=== PATIENT | male | born 1945 | race Caucasian/White ===

== ENCOUNTER 2018-12-18 07:51 | Observation (INO) ==
--- NOTE | 2018-12-18 09:04 | Diag Imaging Result Doc PS360 ---
CT HEAD W/O CONTRAST - 12/18/2018 INDICATION: syncope COMPARISON: 07/30/2018, 06/20/2017 FINDINGS: There is moderate diffuse cerebral atrophy. There is significant ventriculomegaly. There is overall stable periventricular white matter hypodensity suggesting chronic microvascular disease. This also might represent edema from normal pressure hydrocephalus. The skull is intact. The sinuses are clear. IMPRESSION: Cerebral atrophy with chronic microvascular disease. Normal pressure hydrocephalus can also have the same appearance. This exam was performed using automated exposure control, adjustment of mA or kV according to patient size, and/or use of iterative reconstruction technique Electronically signed by Fred Mancuso 12/18/2018 9:01 AM
[2018-12-18 10:03] LABS: AGAP 11; ALB/GLOB RATIO 0.8; ALBUMIN 3.3 g/dL (3.5-5.0); ALKALINE PHOSPHATASE 85 U/L (32-122); BUN 13 mg/dL (8-22); CALCIUM 8.5 mg/dL (8.8-10.2); CHLORIDE 100 mmol/L (98-107); CK PROFILE 34 U/L (24-204); COSMO 268; CREATININE 0.6 mg/dL (0.7-1.2); ESTIMATED GFR > 60; GLUCOSE 85 mg/dL (70-104); GOT 13 U/L (10-34); GPT 8 U/L (10-44); POTASSIUM 4.1 mmol/L (3.5-5.1); SODIUM 134 mmol/L (136-145); TCO2 23 mmol/L (25-35); TOTAL PROTEIN 7.5 g/dL (6.3-8.3)
[2018-12-18 10:19] LABS: HEMATOCRIT 25.6 % (42.0-52.0); HEMOGLOBIN 8.2 g/dL (14.0-18.0); IMM GRAN# 0.04 X1000 (0.0-0.04); LYMPH# 0.24 X1000 (1.2-3.4); LYMPH% 11.8 % (20.5-51.1); MCV 112.3 FL (81-99); MONO# 0.59 X1000 (0.11-0.59); MONO% 28.9 % (1.7-9.3); MPV 10.1 FL (7.4-10.4); NEUT# 1.17 X1000 (1.4-6.5); NEUT% 57.3 % (42.2-75.2); PLT 110 X1000 (130-400); RBC 2.28 XMIL (4.7-6.1); RDW 15.9 % (11.5-14.5); WBC 2.04 X1000 (4.8-10.8)
[2018-12-18] MEDS ORDERED: LASIX IV ONE (13:13)
[2018-12-18] MEDS ORDERED: LOPRESSOR IV ONE (13:13)
--- NOTE | 2018-12-18 14:19 | PROVIDER DOCUMENTATION ---
This chart was entered by Jihan Geiger Scribe, acting as scribe for Ryley Saavedra DO. HPI-Syncope/Dizziness - General Chief Complaint: Syncope Stated Complaint: syncope Time Seen by Provider: 12/18/18 10:20 Source: patient Allergies/Adverse Reactions: Patient Allergies Allergy/AdvReac Type Severity Reaction Status Date / Time No Known Allergies Allergy Verified 07/30/18 10:07 Home Medications: Home Medication List Medication Instructions Recorded Confirmed Last Taken Type Omeprazole [Prilosec] 40 mg PO DAILY 07/30/18 12/18/18 07/29/18 History 40 MG Megestrol Acetate 40 mg PO DAILY 12/18/18 12/18/18 Unknown History - History of Present Illness-Syncope/Dizzy Nature of Presenting Problem: Patient is a 73 year old male who presents to the ED via EMS after having 4 syncopal episodes this morning. Reports one syncopal episodes lasted 5 minutes. History of esophageal cancer that is being treated by Dr. Villar. Denies chest pain and shortness of breath. Prior Episodes: reports: multiple episodes today (4) Onset/Duration: reports: this morning Timing: reports: intermittent Symptoms prior to episode: reports: none Context: reports: lost consciousness Loss of Consciousness: prolonged (minutes) (5) Location of injury. (If syncope resulted in an injury.): reports: none Current Symptoms: reports: none/feels normal Recently Seen Here or By Another Healthcare Provider: No Review of Systems - Adult - REVIEW OF SYSTEMS - ADULT Constitutional: reports: no symptoms reported. denies: chills, fever, fatique Eyes: reports: no symptoms reported Ears, Nose, Mouth & Throat: reports: no symptoms reported Cardiovascular: reports: no symptoms reported. denies: chest pain, heart murmur, palpitations Respiratory: reports: no symptoms reported. denies: cough, shortness of breath, wheezing Gastrointestinal: reports: no symptoms reported Genitourinary: reports: no symptoms reported Musculoskeletal: reports: no symptoms reported Integumentary: reports: no symptoms reported Neurological: reports: see HPI, syncope. denies: dizziness/vertigo, headache/migraines, numbness, seizure Psychiatric: reports: no symptoms reported Endocrine: reports: no symptoms reported Hematologic/Lymphatic: reports: no symptoms reported Allergic/Immunologic: reports: no symptoms reported All Other Systems: Reviewed and Negative Past History - Adult - PAST MEDICAL HISTORY-ADULT Review of Records: reports: Nursing Assessment Review, Medications Reviewed, Social history reviewed & non-contributory. Major Childhood Illnesses: reports: denies history Cardiovascular: reports: denies history Respiratory: reports: denies history Gastrointestinal: reports: cancer (esophgeal) Obstetrical/Gynecological: reports: denies history Genitourinary: reports: denies history Musculoskeletal: reports: denies history Neurological: reports: denies history Psychiatric: reports: denies history Endocrine/Immune: reports: denies history Other Conditions: reports: other cancer (esophageal cancer) - PRIOR SURGERIES/PROCEDURES Surgical/Procedure History: reports: hernia repair, other (cancer removal) - PRIOR HOSPITALIZATIONS Prior Hospitalizations: reports: for other non-related - IMMUNIZATION STATUS Childhood Immunizations: See Nurse Assessment Flu Vaccine: See Nurse Assessment - FAMILY HISTORY Family History: reviewed, not pertinent - SOCIAL HISTORY Smoking: cigarettes, chew, less than 1 pack/day Provider spent 3-5 mins advising pt. on dangers of tobacco.: Discussed manners to quit use, and f/u contacts for add'l counseling. Substance Use: denies Living Situation: family Physical Exam-General - PHYSICAL EXAM-ADULT Initial Vital Signs Reviewed: Yes - CONSTITUTIONAL General Appearance: alert, no apparent distress, cachetic. negative: lethargic, slow to respond - EYES Eyes: other (pupils are 2 mm and equal. lateral nystagmus). negative: scleral icterus, sunken eyes - HEAD, EARS, NOSE, MOUTH & THROAT HENMT: other (dry mucous membranes. edentulous). negative: moist mucous membranes, angioedema, hearing deficit - NECK Neck: other (degenerative changes.). negative: carotid bruit, limited range of motion - RESPIRATORY Respiratory: chest non-tender, crackles (bilateral bases), wheezing (bilateral bases. inspiratory wheeze present to anterior chest.). negative: respiratory distress - CARDIOVASCULAR Cardiovascular: no edema, no JVD, systolic murmur (1/6 murmur present at right 2nd intercostal space and apex.), PMI displaced laterally. negative: tachycardia - GASTROINTESTINAL (ABDOMEN) Abdominal Exam: normal bowel sounds, non tender, soft, abdominal bruit. negative: guarding, hernia - MUSCULOSKELETAL Extremity: normal range of motion, non-tender, other (degenerative changes to bilateral lower extremity joints.). negative: deformity, erythema - SKIN Integumentary: normal turgor, warm/dry, ecchymosis (scattered ecchymosis to upper and lower extremities.). negative: cyanosis, jaundice - NEUROLOGIC Neurologic: grossly normal, other (skate boarder 2-12 intact.). negative: aphasia, facial droop - PSYCHIATRIC Psych/Mental Status: normal mood/affect, other (oriented to person and place.). negative: anxious Progress - PLAN OF CARE/RESULTS Progress/Plan/Lab Results: Vital Signs - 8 hr 12/18/18 08:04 12/18/18 10:38 12/18/18 10:40 Temperature 97.9 F Pulse Rate 63 117 H 120 H Respiratory Rate 16 28 H 28 H Blood Pressure 128/72 O2 Sat by Pulse Oximetry 94 L 98 96 12/18/18 10:44 12/18/18 10:50 12/18/18 11:00 Temperature Pulse Rate 100 H 115 H 112 H Respiratory Rate 37 H 27 H 27 H Blood Pressure 109/68 O2 Sat by Pulse Oximetry 98 91 L 97 12/18/18 11:01 12/18/18 12:00 12/18/18 12:01 Temperature Pulse Rate 113 H 111 H 113 H Respiratory Rate 28 H 27 H 27 H Blood Pressure 111/74 113/75 O2 Sat by Pulse Oximetry 97 97 96 12/18/18 13:01 12/18/18 13:36 12/18/18 13:39 Temperature Pulse Rate 116 H 114 H 114 H Respiratory Rate 27 H 26 H 26 H Blood Pressure 108/74 105/73 98/70 O2 Sat by Pulse Oximetry 97 95 96 12/18/18 13:41 12/18/18 13:43 12/18/18 13:45 Temperature Pulse Rate 114 H 117 H 108 H Respiratory Rate 26 H 26 H 28 H Blood Pressure 111/66 103/68 102/67 O2 Sat by Pulse Oximetry 95 96 95 12/18/18 13:46 12/18/18 13:47 12/18/18 13:50 Temperature Pulse Rate 100 H 98 H 103 H Respiratory Rate 25 H 27 H 28 H Blood Pressure 107/69 112/64 O2 Sat by Pulse Oximetry 96 96 96 Laboratory Results - last 24 hr 12/18/18 12/18/18 12/18/18 09:34 09:34 09:34 WBC 2.04 L RBC 2.28 L Hgb 8.2 L Hct 25.6 L MCV 112.3 H MCH 36.0 H MCHC 32.0 L RDW Std Deviation 15.9 H Plt Count 110 L MPV 10.1 Immature Gran % (Auto) 2.0 H Neut % (Auto) 57.3 Lymph % (Auto) 11.8 L [place] % (Auto) 28.9 H Eos % (Auto) 0.0 Baso % (Auto) 0.0 Immature Gran # (Auto) 0.04 Neut # (Auto) 1.17 L Lymph # (Auto) 0.24 L [place] # (Auto) 0.59 Eos # (Auto) 0.00 Baso # (Auto) 0.00 Sodium 134 L Potassium 4.1 Chloride 100 Carbon Dioxide 23 L Anion Gap 11 BUN 13 Creatinine 0.6 L Estimated GFR/1.73 m2 > 60 BUN/Creatinine Ratio 22 Glucose 85 Calculated Osmolality 268 Calcium 8.5 L Total Bilirubin 0.80 AST 13 ALT 8 L Alkaline Phosphatase 85 Creatine Kinase 34 Troponin T Gsz-M-Btmhamzwnjl Pept 1163 H Total Protein 7.5 Albumin 3.3 L Globulin 4.2 Albumin/Globulin Ratio 0.8 12/18/18 09:34 WBC RBC Hgb Hct MCV MCH MCHC RDW Std Deviation Plt Count MPV Immature Gran % (Auto) Neut % (Auto) Lymph % (Auto) [place] % (Auto) Eos % (Auto) Baso % (Auto) Immature Gran # (Auto) Neut # (Auto) Lymph # (Auto) [place] # (Auto) Eos # (Auto) Baso # (Auto) Sodium Potassium Chloride Carbon Dioxide Anion Gap BUN Creatinine Estimated GFR/1.73 m2 BUN/Creatinine Ratio Glucose Calculated Osmolality Calcium Total Bilirubin AST ALT Alkaline Phosphatase Creatine Kinase Troponin T < 0.010 Cbt-I-Clyrpixucin Pept Total Protein Albumin Globulin Albumin/Globulin Ratio Orders Category Date Time Status Code [Resuscitation Status] Routine Care 12/18/18 12:08 Ordered Transfuse .Give-Transfuse Care 12/18/18 13:47 Active Hospice Care Consult [OM.CSS] Routine Cons 12/18/18 11:45 Active Palliative Care Consult [OM.CSS] Routine Cons 12/18/18 11:[address] HEAD W/O CONTRAST [CT] Stat Exams 12/18/18 08:24 Completed CBC WITH ELECTRONIC DIFF [HEME] Stat Lab 12/18/18 09:34 Completed CK PROFILE [SP CHEM] Stat Lab 12/18/18 09:34 Completed COMPREHENSIVE METABOLIC PANEL [CHEM] Stat Lab 12/18/18 09:34 Completed PRBC [LRPC (RED CELLS)] [BBK] Stat Lab 12/18/18 13:47 Ordered PRO B-NATRIURETIC PEPTIDE Stat Lab 12/18/18 09:34 Completed TROPONIN T Stat Lab 12/18/18 09:34 Completed TYPE & SCREEN [BBK] Stat Lab 12/18/18 13:47 Ordered Furosemide [Lasix] Med 12/18/18 13:13 Discontinued 20 mg IV NOW ONE Metoprolol [Lopressor] Med 12/18/18 13:13 Discontinued 5 mg IV NOW ONE Transfer/Admit Order [TRANSFER] Routine Transfer 12/18/18 13:48 Ordered 1158 - Electric Hoist Operator with Hospice states patient's family wants patient dischar ged home on comfort measures if patient is offered admission. Result Diagrams: 12/18/18 09:34 12/18/18 09:34 - REASSESSMENT Reassessment #1 Status: unchanged (STABLE W/O REPEAT EPISODED DISCUSSED LAB/CTSCAN WITH PATIENT AND FAMILY POA: HAS SIGNED DNR ORDERS HOSPICE TO SEE PATIENT AFTER 23 OBS : AT [facility]) - EKG 1 Time of EKG reading by physician:: 08:05 EKG Read and Signed by:: Ryley Saavedra EKG Interpretation (*Must complete 3 of following elements*): Abnormal (ST & T wave abnormality, consider inferior ischemia; ST & T wave abnormality, consider anterolateral ischemia) Rate: 120 Rhythm: sinus tachycardia PA Interval: normal Comments: septal infarct, age undetermined; - CT/MRI 1 CT Study: Head Impression: See EMR Report ( CT HEAD W/O CONTRAST - 12/18/2018 INDICATION: syncope COMPARISON: 07/30/2018, 06/20/2017 FINDINGS: There is moderate diffuse cerebral atrophy. There is significant ventriculomegaly. There is overall stable periventricular white matter hypodensity suggesting chronic microvascular disease. This also might represent edema from normal pressure hydrocephalus. The skull is intact. The sinuses are clear. IMPRESSION: Cerebral atrophy with chronic microvascular disease. Normal pressure hydrocephalus can also have the same appearance. This exam was performed using automated exposure control, adjustment of mA or kV according to patient size, and/or use of iterative reconstruction technique Electronically signed by Fred Mancuso 12/18/2018 9:01 AM 12/18/18 0901 Interpreting Physician: Fred Mancuso MD Dictated Date/Time: 12/18/18 0859 cc: Ryley Saavedra DO; Kanchan Cuenca) - CONSULTS/PCP/HOSPITALIST Notification #1 *Consult/PCP/Hospitalist*: SONI Diaz for Hospitalist Time Discussed: 13:21 (Dr. Sun accepted admit) Reason/Comments: Dr. Saavedra consulted with Emily about patient. Consult Disposition: Admit Departure - Departure Date of Disposition Decision: 12/18/18 Time of Disposition Decision: 13:22 DIAGNOSIS: Normal pressure hydrocephalus, Macrocytic anemia Syncopal episodes Qualifiers: Syncope type: unspecified Qualified Code(s): R55 - Syncope and collapse Disposition: ADMITTED INPATIENT 09 Certified Medical Emergency: Emergent Condition: Good - Critical Care Note This patient required my direct & personal management of CC.: No Attestation - Physician/ FIFI Attestation Patient care was provided by Advanced Practice Provider:: No The physician spent face to face time with patient:: Yes Advanced Practice Provider documentation review:: Supervising physician onsite and consulted in the evaluation and care of this patient. The physician did have a face to face encounter with the patient. This chart was documented by the indicated scribe, (Jihan Geiger Scribe) and accurately reflects the services I performed and decisions made by me, Ryley Saavedra DO, as attested by the provider's signature.
[2018-12-18] MEDS ORDERED: NS 1,000 ML IV ONE (15:04)
[2018-12-18] MEDS ORDERED: TYLENOL PO PRN (15:04)
[2018-12-18] MEDS ORDERED: ZOFRAN IV PRN (15:04)
--- NOTE | 2018-12-18 15:14 | EKG Report ---
Test Performed on : 12/18/2018 08:05:56 AM Test Reason : ED. No order in [place] Blood Pressure : / mmHG Vent. Rate : 120 BPM Atrial Rate : 120 BPM P-R Int : 132 ms QRS Dur : 050 ms QT Int : 320 ms P-R-T Axes : 082 026 -62 degrees QTc Int : 452 ms Sinus tachycardia. Septal infarct , age undetermined ST & T wave abnormality, consider inferior ischemia ST & T wave abnormality, consider anterolateral ischemia Abnormal ECG When compared with ECG of 31-JUL-2018 06:53, Significant changes have occurred Unconfirmed Result
[2018-12-18] MEDS ORDERED: VANCOMYCIN IV PER PHARMACY MISC SCH (15:15)
--- NOTE | 2018-12-18 15:25 | Diag Imaging Result Doc PS360 ---
CHEST-PORTABLE - 12/18/2018 INDICATION: dyspnea COMPARISON: 07/31/2018 FINDINGS: There is a more pronounced nodular density in the left lung base. This measures 18 x 11 mm. Stable COPD changes. There is some ill-defined infiltrate in the left lung base. There is probably a hiatal hernia. No pneumothorax or significant pleural effusion. Heart size is normal. IMPRESSION: 1. Left basilar pulmonary nodule. 2. Minimal infiltrate in the left lung base. 3. Probable COPD. 4. Hiatal hernia. Electronically signed by Fred Mancuso 12/18/2018 3:23 PM
[2018-12-18] MEDS: ZOSYN 3.375 GM in NS 50 ML IV SCH ×2 (15:40→21:44)
[2018-12-18] MEDS ORDERED: VANCOMYCIN 1,100 MG in NS 250 ML IV ONE (16:00)
--- NOTE | 2018-12-18 16:34 | HISTORY AND PHYSICAL ---
PRIMARY CARE PROVIDER: Kanchan Cuenca. CHIEF COMPLAINT: Per E report syncopal episodes x4. HPI: Mr. Rodriguez is a 73-year-old male who is a patient Kacnhan Cuenca who carries a past medical history of anemia associated with MDS, previous syncope associated with symptomatic anemia, history of esophageal cancer, oral ulcerations, who was brought into the ED via EMS after 4 syncopal episodes this morning, per E report the syncopal episode lasted about 5 minutes. He currently has 2 family members a son and [id number] at bedside and who just came to the hospital. They know he had a syncopal episode. They did not have very much information to give. His power of cut off saw tender metal is not present at the time but will be back later. They talked to the ED physician about making him a DNR level 1 and consulted hospice and palliative care, per ED report they wanted the patient tweaked so they could get him back home. He was tachycardic, tachypneic, I do not have initially any fevers documented however he is now running a low-grade fever of 99. His head CT did show normal-pressure hydrocephalus as well as cerebral atrophy with chronic microvascular disease. We will go ahead and check a chest x-ray, blood cultures, urine culture, start him on broad-spectrum antibiotics for now, type and screen him and transfuse him with 2 units of PRBCs. Patient is currently in his room on the floor. He does awaken with voice and touch however he does fall back asleep. He knows his name, date of and where he is at. He does not really remember any of the events from earlier today. PAST MEDICAL HISTORY: 1. Esophageal carcinoma followed by Dr. Villar. 2. Status post bilateral hernial inguinal repair. 3. Status post right open knee surgery. 4. Constipation. 5. EGGY and placement of feeding J-tube [place] [address]ara and Dr. Templeton. SOCIAL HISTORY: Extensive use for smoking and smokeless tobacco. No alcohol or illicit drug use. He lives with his youngest daughter who is his power of cut off saw tender metal. He is currently a DNR level 1 with a hospice consult. FAMILY HISTORY: Had a brother and sister who both treated for tuberculosis. REVIEW OF SYSTEMS: 14 point review of systems limited second to the patient's sleepy condition. He does awaken with voice and tactile stimulus however he falls back asleep quickly and you have to ask him questions more than once but he did answer basic name, date of and location. ALLERGIES: No known drug allergies. HOME MEDICATIONS: 1. Megace 40 mg p.o. daily. 2. Prilosec 40 mg p.o. daily. PHYSICAL EXAMINATION: VITAL SIGNS: Temperature is 99.3 degrees, heart rate 105, respirations 16, blood pressure is 109/60, O2 is 98% on 2 L nasal cannula. GENERAL: Mr. Rodriguez is a 73-year-old male who is cachectic in appearance, somewhat drowsy however he does awaken to voice and tactile stimuli. He falls asleep quickly. He is in no acute distress. HEENT: Atraumatic, normocephalic. LUISANA, gums are pale. CARDIOVASCULAR: S1, S2 appreciated. No murmurs, gallops, rubs. RESPIRATORY: Lung sounds diminished all lung pan. GI: Soft, nontender, nondistended. Positive bowel sounds. SKIN: Warm, dry, and intact. He does have bruising noted to his upper extremities. DIAGNOSTIC DATA: Head CT, cerebral atrophy with chronic microvascular disease, normal-pressure hydrocephalus can also have the same appearance. LABORATORY DATA: WBC 2, hemoglobin and hematocrit 8 and 25, platelet count is 110,000. Sodium 134, potassium 4.1, BUN 13, creatinine 0.6, blood glucose is 85. ProBNP is 1163, albumin is 3.3. ASSESSMENT AND PLAN: 1. Will rule out sepsis. The patient is now afebrile. He was tachypneic, tachycardic and hypoxic upon arrival. We will initiate broad-spectrum antibiotics, check a chest x-ray, urinalysis and blood cultures, start him on IV hydration. 2. Anemia associated with myelodysplastic syndrome syndrome. We will go ahead and type and screen and transfer 2 units. 3. Syncope possibly associated with the symptomatic anemia. Again, we will transfuse 2 units. Also on his head CT does show normal pressure hydrocephalus, attempted to speak with family members about how aggressive they wanted to be with their treatment. They did make him a do not resuscitate level 1 with a hospice consult while in the emergency department. We will continue with neuro checks. 4. History of esophageal cancer. We will let Dr. Villar know his patient is in- house, according to the ED physician this has all been treated. 5. Malnutrition aware. When the patient is more awake and alert we will initiate him on a diet and advanced as tolerated with supplementation. Continue his Megace. 6. Code status do not resuscitate level 1 with hospice and palliative care consult. We will need to continue to talk with his power of cut off saw tender metal Ms. Miramontes for further details on how aggressive she wants his treatment to be. 7. Further recommendation to follow physician evaluation, laboratory and diagnostic data. Dictated by SONI Kimball for Khari Sun MD cc: MD Khari Wadsworth MD [facility]
[2018-12-18] MEDS ORDERED: NS 500 ML ONE (23:44)
[2018-12-19] MEDS: ZOSYN 3.375 GM in NS 50 ML IV SCH ×2 (03:32→09:50)
[2018-12-19] MEDS ORDERED: PRILOSEC PO SCH (09:00)
[2018-12-19] MEDS ORDERED: MEGACE PO SCH (09:00)
--- NOTE | 2018-12-19 09:45 | Diag Imaging Result Doc PS360 ---
CHEST-PORTABLE - 12/19/2018 INDICATION: PNA COMPARISON: 12/18/2018 FINDINGS: There is ill-defined infiltrate in the left lung base in a similar location to the nodular opacity on yesterday's exam. The infiltrate has slightly increased since prior. The right lung is fairly clear. Heart size is normal. IMPRESSION: Slight increased ill-defined left basilar infiltrate/pneumonia. Possible left basilar pulmonary nodule. Electronically signed by Fred Mancuso 12/19/2018 9:43 AM
[2018-12-19 09:51] LABS: HEMATOCRIT 35.6 % (42.0-52.0); HEMOGLOBIN 11.7 g/dL (14.0-18.0); MCH 32.7 PG (27-31); MCHC 32.9 g/dL (33-37); MCV 99.4 FL (81-99); MPV 10.5 FL (7.4-10.4); RBC 3.58 XMIL (4.7-6.1); RDW 25.1 % (11.5-14.5); WBC 22.5 X1000 (4.8-10.8)
[2018-12-19] MEDS ORDERED: VANCOMYCIN 750 MG in NS 150 ML IV SCH (10:00)
[2018-12-19 10:07] LABS: AGAP 14; ALB/GLOB RATIO 0.6; ALBUMIN 2.7 g/dL (3.5-5.0); ALKALINE PHOSPHATASE 75 U/L (32-122); BUN 16 mg/dL (8-22); CALCIUM 8.2 mg/dL (8.8-10.2); CHLORIDE 99 mmol/L (98-107); COSMO 262; CREATININE 0.7 mg/dL (0.7-1.2); ESTIMATED GFR > 60; GLUCOSE 70 mg/dL (70-104); GOT 12 U/L (10-34); GPT 6 U/L (10-44); SODIUM 131 mmol/L (136-145); TCO2 18 mmol/L (25-35)
--- NOTE | 2018-12-19 11:31 | HEMO/ONC CONSULTATION ---
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 HISTORY OF PRESENT ILLNESS: Mr. Rodriguez presented to the emergency department on 12/18/2018 after having 4 syncopal episodes. While in the emergency department, the patient had a low-grade temperature of 99 degrees. The patient was also falling asleep, easy to arouse though, very fatigued and tired. The patient was admitted at that time for further evaluation and management. Mr. 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 The patient had bone marrow biopsy in May 2013 which showed cellulitis 75%. His squamous cell carcinoma has been very well under control since his resection. His myelodysplasia syndrome has also been relatively under control. The patient has a baseline white blood cell count over the last six CBCs of a white blood cell count of 1.3 to 3.0, a baseline hemoglobin of 8.4 to 10, and a baseline hematocrit of 26.1 to 28. PAST MEDICAL HISTORY: Esophageal carcinoma, myelodysplasia syndrome. PAST SURGICAL HISTORY: Bilateral ureteral inguinal hernia, knee surgery and J- tube. SOCIAL HISTORY: Daily tobacco abuse. No alcohol or illicit drug use. FAMILY HISTORY: Tuberculosis, otherwise noncontributory. ALLERGIES: No known drug allergies. HOME MEDICATIONS: Megace and Prilosec. REVIEW OF SYSTEMS: Negative unless mentioned in HPI. PHYSICAL EXAM: Vital Signs: Temperature 98.3 degrees, heart rate 60, respiratory rate 18, blood pressure 106/57, saturating 100% on nasal cannula. General: Patient is awake, lying in bed, no acute distress noted. HEENT: Anicteric. Pupils PERRLA. Mucous membranes dry. Neck: Supple. Trachea midline. No JVD. Lymph Nodes: No palpable lymphadenopathy. Cardiovascular: S1, S2. Regular rate and rhythm. Chest: Bilateral breath sounds diminished bilaterally. Abdomen: Soft, nontender. Bowel sounds present in all 4 quadrants. Skin: Warm, dry and intact. Extremities: No clubbing, no rashes, no cyanosis. Neurologic: Alert and oriented x2. No focal deficits noted. LABORATORY DATA: White blood cell count today is 22.5, hemoglobin 11.7, hematocrit 35.6, platelets are 111. Potassium 4.0, BUN 16, creatinine 0.7. RADIOLOGY RESULTS: CT of the head shows residual atrophy with chronic microvascular disease, normal-pressure hydrocephalus can also have this appearance. Chest x-ray shows ill-defined left basilar infiltrate or pneumonia, possible left basal pulmonary nodule. ASSESSMENT AND PLAN: 1. Myelodysplasia syndrome: The patient has received 2 units of packed red blood cells. Hemoglobin and hematocrit has greatly improved. Continue to monitor counts closely. 2. 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 Continue to monitor. 3. Possible pneumonia: Continue antibiotics as ordered per primary medical team. 4. Leukocytosis: Most likely caused by his infection at this time. Continue antibiotics as ordered. 5. Malnutrition: Patient will continue on Megace. Patient will continue protein shakes 3 times a day. Continue diet as ordered. 6. DNR level 1. Continue with hospice. Continue-per Primary Medical Team. Dictated by SONI Raymundo for Santos Villar MD Patient seen and examined. As above. Patient with pancytopenia and MDS for several years. His pancytopenia has been relatively stable now for years. He also has a history of GE junction carcinoma and he is cured from that. He was admitted with syncopal episodes. Evaluation in progress. His white count was at his baseline yesterday but today has jumped up to 22.5. This may be a lab error and we will simply try to repeat this. He does not look toxic or septic at this time. Santos Villar M.D. cc: SONI Raymundo MD [facility]Jackson
[2018-12-19 12:12] VITALS: BP 97/63
[2018-12-19] MEDS ORDERED: VANCOMYCIN 1 GM/NS 1 GM/250 ML IVPB IV SCH (18:00)
--- NOTE | 2018-12-19 20:04 | DISCHARGE SUMMARY ---
ADMISSION DATE: 12/18/2018 DISCHARGE DATE: 12/19/2018 CONSULTATIONS: Dr. Goldman with Hematology/Oncology. PERTINENT PROCEDURES: 1. Head CT: Cerebral atrophy with chronic microvascular disease, normal- pressure hydrocephalus can also have the same appearance. 2. Chest x-ray: Left basilar pulmonary nodule, minimal infiltrate in the left lung base, probable COPD, and hiatal hernia. 3. Follow-up chest x-ray slight increased ill-defined left basilar infiltrate pneumonia, possible left basilar pulmonary nodule. DISCHARGE DIAGNOSES: 1. MDS. The patient received 2 units of packed red blood cells. His hemoglobin and hematocrit has greatly improved as well as his mentation. 2. Syncopal episodes x4 on the day of his admission. The patient had symptomatic anemia. He was transfused with 2 units. His hemoglobin and hematocrit has improved greatly as well as his mentation. 3. Pneumonia. The patient was initiated on broad-spectrum antibiotics given he was febrile, tachycardic and tachypneic upon presentation. Initially, he did not have leukocytosis. 4. Leukocytosis believed to be secondary to his pneumonia. 5. Malnutrition. Patient will continue on Megace as well as protein shakes 3 times a day. 6. DNR level 1 with palliative care consult. The patient and family have chosen [facility] requested a DNR level 1 status. The order was placed. A portable DNR was documented and signed as well. [facility] has all equipment set up for the patient, and he is ready for discharge today which Dr. Villar is also in agreement with. 5. T3N0 gastroesophageal junction squamous cell carcinoma, history VITAL SIGNS: At time of discharge, temperature 97.9 degrees, heart rate 68, respirations 18, blood pressure 97/63, and O2 is 95% on nasal cannula. HOSPITAL COURSE: Briefly, Mr. Rodriguez is a 73-year-old male who carries a past medical history of T3N0 gastroesophageal junction squamous cell carcinoma. He has had no evidence of the disease since June of 2013. He was brought into the ED by his family for 4 syncopal episodes. In the emergency department, he was noted to have a low-grade temperature. He was tachypneic and tachycardic. He appeared to be cachectic in appearance. He was very drowsy, and was easy to arouse with voice and tactile stimuli, however, he would fall back asleep easily. He was found to be somewhat anemic in the ED. He was transfused with 2 units of packed red blood cells. His hemoglobin and hematocrit has greatly improved. His family made him a DNR level 1. We consulted palliative care. [facility] hospice was called by the family over the weekend, and they now have his equipment set up to be discharged home today. He was found to have a pneumonia. He was initiated on broad-spectrum antibiotics, and will be discharged home today with [facility]. VITAL SIGNS: At time of discharge, temperature is 97.9 degrees, heart rate 68, respirations 18, blood pressure 97/63, O2 is 95% on nasal cannula. DISCHARGE DIET: Clear liquids advance as tolerated with Ensures 3 times a day with each meal as well as to continue on his Megace. DISCHARGE MEDICATIONS: 1. Megace 40 mg p.o. daily. 2. Prilosec 40 mg p.o. daily. 3. Omnicef 300 mg p.o. b.i.d. 4. Tylenol 650 mg p.o. q.6 hours p.r.n. 5. Zithromax 500 mg p.o. daily. The patient is to take 500 mg the first day, and then 250 mg p.o. daily. DISPOSITION: Mr. Rodriguez is being discharged home with [facility]. He can return to the ED or call 911 for any worsening of symptoms. Dictated by SONI Kimball for Yash Bailey MD cc: Yash Bailey MD MTDD
== END 2018-12-19 17:59 | disposition hospice, home (50) ==
LOC: SUPCPDRO → 3N 07:51 → ED 07:51 → SUATTDRO 14:09
PROVIDERS: ATTEND Internal Medicine
CPT/HCPCS: 36430; 70450; 71010; 71045; 80053; 82550; 82948; 83605; 83880; 84484; 85025; 85027; 86850; 86900; 86901; 86920; 87040; 93005; 94761; 96374; 96375; 99285; A9270; J1940; J2543; J3370; J7030; J7050; P9016; S0179; XXXXX